=== PATIENT | female | born 1985 | race Caucasian/White ===

== ENCOUNTER 2019-12-21 07:38 | Inpatient (IN) ==
[2019-12-21] MEDS ORDERED: miSOPROStoL 50 MCG TAB PO ONE ×2 (08:17→10:30)
[2019-12-21] MEDS ORDERED: OXYTOCIN 30 UNITS/500 ML BAG IV PRN ×2 (08:17→19:23)
[2019-12-21] MEDS: LACTATED RINGER'S 1,000 ML IV PRN ×3 (08:33→21:22)
[2019-12-21 08:47] LABS: Hematocrit (blood only) 35.3 % (37-47); Hemoglobin 11.8 g/dL (12.0-16.0); Mean Corpuscular Hemoglobin 29.9 pg (25-34); Mean Corpuscular Volume 89.4 fL (80-100); Mean Platelet Volume 11.7 fL (7.4-10.4); Platelet Count 127 K/uL (130-400); RDW Coefficient of Variation 13.5 % (11.5-14.5); RDW Standard Deviation 43.6 fL (36.4-46.3); Red Blood Count 3.95 M/uL (4.2-5.4); White Blood Count 8.36 K/uL (4.8-10.8)
[2019-12-21] MEDS: CEFAZOLIN 1000MG 1,000 MG/7.5 ML SYR IV PRN ×2 (08:53→16:54)
[2019-12-21 09:11] LABS: Mean Corpuscular Hgb Conc 33.4 g/dL (32-36)
--- NOTE | 2019-12-21 09:11 | History and Physical Report ---
DATE OF ADMISSION: 12/21/2019 CHIEF COMPLAINT: Intrauterine at 35 weeks 1 day, sin rupture of membranes. HISTORY OF PRESENT ILLNESS: The patient is a 34-year-old 1, para 0. She is in good general health. She is on no chronic pills or medications. SHE STATES SHE IS ALLERGIC TO AMOXICILLIN FROM WHICH SHE HAS AN UNKNOWN REACTION. Her last menstrual period was 05/07/2019. Her first ultrasound at about 8 weeks' gave her a due date of 01/24/2020. She has had no problems. She did have a diagnosis of a 2-vessel umbilical cord. Her was progressing normally. She got up about 6:00 a.m. this morning and had a gush of fluid, which ran down her leg. She was told to come to maternity for evaluation and fluid was Nitrazine positive. ALLERGIES: ALLERGIC TO AMOXICILLIN, UNKNOWN REACTION. PAST SURGICAL HISTORY: No previous surgery. PAST MEDICAL HISTORY: No history of any medical problems. SOCIAL HISTORY: No smoking, no alcohol intake. Works at [employer]. FAMILY HISTORY: Mom is 62, diabetic; she has had 2 MIs. Father at age 35 in an auto accident. REVIEW OF SYSTEMS: HEAD: No symptoms of frequent or severe headaches. EYES: No symptoms of blurred vision or double vision. EARS: No symptoms of frequent ear infection or difficulty hearing. PHYSICAL EXAMINATION: GENERAL: A well-developed, well-nourished 34-year-old white female, alert, oriented x3 and cooperative, in no acute distress, appeared her stated age. EYES: Conjunctivae are pink. Sclerae white, no evidence of jaundice. EARS: Had normal light reflex bilaterally. LUNGS: Clear to auscultation and percussion. HEART: Had a regular rhythm. ABDOMEN: Revealed term size fetus. There was no tenderness, no CVA tenderness. PELVIC: Revealed sin rupture of membranes. Cervix was posterior, uneffaced, soft, vertex presentation, -3 station. Estimated weight 7 pounds. MUSCULOSKELETAL: Revealed no calf tenderness. IMPRESSIONS OF THIS CASE: Intrauterine at 35 weeks 1 day, sin rupture of membranes, 2-vessel umbilical cord.
[2019-12-21] MEDS ORDERED: miSOPROStoL 50 MCG TAB PO SCH (14:45)
[2019-12-21] MEDS ORDERED: BUTORPHANOL TARTRATE 1 MG/ML VIAL IV PRN (18:32)
[2019-12-21] MEDS ORDERED: ePHEDrine sulfate 50 MG/ML AMP ONE (19:31)
[2019-12-21] MEDS ORDERED: BUPIVACAINE 0.25% 30 ML VIAL ONE (19:31)
[2019-12-21] MEDS ORDERED: fentaNYL citrate 100 MCG/2 ML VIAL ONE (19:31)
[2019-12-21] MEDS ORDERED: fentaNYL 2MCG/ML ROPIV 1.25MG/ML 100 ML BAG EPI ONE (19:32)
--- NOTE | 2019-12-21 19:33 | Anesthesiology Consultation ---
Date of Service December 21, 2019 Assessment & Plan (1) Encounter for pre-operative examination: Chart Review Chart Review: Acceptable Risk for Labor Epidural History Height/Weight Height: 5 ft 7 in Weight: 90.265 kg Allergies Allergy/AdvReac Type Severity Reaction Status Date / Time amoxicillin Allergy Verified 05/13/19 12:37 Medications Home Medications Medication Instructions Recorded Confirmed Last Taken PNV cmb#95-ferrous fumarate-FA 1 tab PO DAILY 12/21/19 12/21/19 12/20/19 11:00 [] Active Medications Generic Name Dose Route Start Last Admin Trade Name Freq PRN Reason Stop Dose Admin Butorphanol Tartrate 1 mg 12/21/19 18:32 12/21/19 18:42 Stadol IV 01/20/20 18:31 1 mg ONCE PRN Administration Pain Lactated Ringer's 1,000 mls @ 125 mls/hr 12/21/19 08:17 12/21/19 18:45 Lr IV 12/23/19 08:16 999 mls/hr .Q8H PRN Infusion L&D Protocol Protocol Cefazolin Sodium 1,000 mg in 7.5 mls @ 2.5 mls/min 12/21/19 08:17 12/21/19 16:54 Ancef 1000mg IV 12/31/19 08:16 2.5 mls/min Q8H PRN Administration Until Delivery Misoprostol 50 mcg 12/21/19 14:45 12/21/19 15:00 Cytotec PO 01/20/20 14:44 50 mcg ONCE GIOVANNY Administration Past Medical History Medical History No significant active problems Past Family History Family History Grandmother (Maternal) Alzheimer disease Colonic polyp Coronary heart disease Dementia Diabetes Dyslipidemia Heart disease Hypertension Myocardial infarction Father Bipolar disorder Mother Asthma Colonic polyp Coronary heart disease Depression Diabetes Dyslipidemia Heart disease Hypertension Myocardial infarction Osteoarthritis Grandmother (Paternal) Breast cancer Aunt Dyslipidemia Uncle Sudden Denies family history of Rheumatoid arthritis SIDS (sudden infant syndrome) Ovarian cancer Prostate cancer Deep vein thrombosis Osteoporosis Cerebral aneurysm Clotting disorder Crohn's disease Kidney disease Schizophrenia Congenital kidney disease Gestational diabetes Lung cancer COPD (chronic obstructive pulmonary disease) Colorectal cancer Pulmonary embolism Lung disease Ulcerative colitis Stroke Cystic kidney disease Social History Smoking Status: Never smoker Do You Dip or Chew Tobacco: No Hx Alcohol Use: Yes Alcohol type: hard liquor Hx Substance Use: No Physical Exam Vital Signs Last Vital Signs Temp 36.4 C L 12/21/19 14:00 Pulse 86 12/21/19 19:21 Resp 18 12/21/19 14:00 BP 133/76 12/21/19 19:21 Testing Laboratory Results 12/21/19 08:35
[2019-12-21] MEDS ORDERED: NALOXONE HCL 0.4 MG/1 ML VIAL/CARP IV PRN (20:04)
[2019-12-21] MEDS ORDERED: NALOXONE HCL 1 MG in SODIUM CHLORIDE 0.9% 1000ML 1,000 ML IV PRN (20:04)
[2019-12-21] MEDS ORDERED: ONDANSETRON INJ 2 MG/ML 2 ML VIAL IV PRN (20:04)
[2019-12-21] MEDS ORDERED: fentaNYL 2MCG/ML ROPIV 1.25MG/ML 100 ML BAG EPI PRN (20:04)
[2019-12-21] MEDS ORDERED: ePHEDrine sulfate 50 MG/ML AMP IV PRN (20:04)
[2019-12-21] MEDS ORDERED: Nursing to Pharmacy Communication SCH (23:45)
[2019-12-22] MEDS: CEFAZOLIN 1000MG 1,000 MG/7.5 ML SYR IV PRN (01:19)
[2019-12-22] MEDS ORDERED: ACETAMINOPHEN 325 MG TAB PO PRN (02:05)
[2019-12-22] MEDS ORDERED: OXYTOCIN 30 UNITS/500 ML BAG IV PRN (02:05)
[2019-12-22] MEDS ORDERED: HYDROCORTISONE ACETATE 25 MG SUPP PR PRN (02:05)
[2019-12-22] MEDS ORDERED: OXYCODONE/ACETAMINOPHEN 5mg/325mg TAB PO PRN (02:05)
[2019-12-22] MEDS ORDERED: ACETAMINOPHEN W/CODEINE #3 1 TAB PO PRN (02:05)
[2019-12-22] MEDS ORDERED: IBUPROFEN 600 MG TAB PO PRN (02:05)
[2019-12-22] MEDS ORDERED: bisacodyL 10 MG SUPP PR PRN (02:05)
[2019-12-22] MEDS ORDERED: SUPERCREAM 0.870% 15 GM JAR EXT PRN (02:05)
[2019-12-22] MEDS ORDERED: BENZOCAINE 20% AER SPR 82.5 GM CAN EXT PRN (02:05)
[2019-12-22] MEDS ORDERED: DIPHTHERIA/TETANUS/PERTUSSIS 0.5 ML SYR/VIAL IM ONE (02:05)
--- NOTE | 2019-12-22 04:46 | Delivery Summary ---
DATE OF DELIVERY: 12/22/2019 DELIVERY NOTE She is a 1, para 1. Blood type is O positive, vaginal group B strep was not done. She was admitted at 35 weeks and 1 day gestation with sin rupture of the membranes. She was grossly Nitrazine fluid positive, the fluid was just gushing out. When she first was admitted, her cervix was like a cm dilated, was uneffaced, was fairly soft. We did a strep culture and then started her on synthetic penicillin due to an ALLERGY TO AMOXICILLIN. She eventually received 3 doses, a dose every 8 hours according to protocol. We started the induction with p.o. Cytotec 50 mcg, gave her 2 doses and then eventually we went to Pitocin. By the time we went to Pitocin, she was like 2-3 cm. Cervix was 100% effaced. Given 1 dose of Stadol and then she went to epidural. Got a fairly good pain release from the epidural, we continued the Pitocin, upped it gradually till we get contractions every 2-3 minutes. She pushed out a live female under half an hour via direct occiput anterior position over an intact perineum. was suctioned through the mouth and the nose. Shoulders were delivered without difficulty. Cord was allowed to pulsate for 1 full minute before clamping, then clamped the cord, cut the cord. Obtained cord blood, it was noted that there was only a 2-vessel cord, we up the Pitocin, the placenta was delivered pretty much on its own, which was removed intact. Inspection of the perineum revealed a first degree laceration at about 5 o'clock on the perineum. This was repaired with a running 2-0 Vicryl out to beyond the hymenal ring. Deep suture of 2-0 Vicryl was used to approximate the bulbocavernosus muscle, separate deep suture was used to approximate the perineal body, a running subcuticular suture of 2-0 Vicryl were used to approximate the perineal skin edges. Following this, vag exam including rectovaginal examination revealed no hematoma formation. There was a superficial laceration of the right labia minora with a small hematoma and this was repaired using a running 3-0 chromic, which compress the hematoma and created good hemostasis. Estimated blood loss was 300 mL. I think the Apgars were 8 and 10. The patient tolerated the procedure well. I attest to the content of the Intraoperative Record and any orders documented therein. Any exceptions are noted below. ANGELICAD
[2019-12-22] MEDS: DOCUSATE SODIUM 100 MG CAP PO SCH ×2 (08:51→20:17)
[2019-12-22] MEDS: PRENATAL VITAMIN 1 TAB PO SCH (08:51)
--- NOTE | 2019-12-22 09:07 | Anesthesia Procedure Note ---
Date of Service December 22, 2019 Anesthesia Post Epidural Note Vital Signs Vital Signs: Temp Pulse Resp BP Pulse Ox 36.7 C 83 18 111/66 94 12/22/19 02:06 12/22/19 04:06 12/22/19 04:06 12/22/19 04:06 12/22/19 04:06 Pain Intensity Abdomen: Pain Intensity: 0 Notes Mental Status: alert / awake / arousable and participated in evaluation Patient Amnestic to Procedure: No Nausea / Vomiting: adequately controlled Pain: adequately controlled Airway Patency, RR, SpO2: stable & adequate BP & HR: stable & adequate Hydration State: stable & adequate Neuraxial Anesthesia: was administered and sensory block is resolving Anesthetic Complications: no major complications apparent and Pt Satisfied with anesthetic care Epidural: Removed without complications and With tip intact
[2019-12-22] MEDS ORDERED: OXYTOCIN 20 UNITS in LACTATED RINGER'S 1,000 ML IV SCH (12:30)
--- NOTE | 2019-12-23 07:45 | Obstetrical Progress Note ---
Date of Service December 23, 2019 Assessment & Plan Admission and Anticipated Discharge Date Admission Date: December 21, 2019 Subjective Patient is seen and examined. She feels well, no complaints. Ambulating without dizziness Voiding without difficulty Tolerating regular diet with out N&V Bleeding is minimal No fever/ chills/ CP/ SOB/ N&V/ Leg pain feeding without problems Vital Signs Temp Pulse Pulse Resp BP Pulse Ox 12/22/19 23:20 36.8 C 76 18 117/68 98 12/22/19 20:15 36.5 C 79 18 125/74 12/22/19 16:25 36.6 C 74 18 120/72 12/22/19 12:45 36.7 C 90 21 115/72 98 12/22/19 08:23 36.7 C 84 19 106/63 96 Lab Results 12/21/19 Range/Units 08:35 WBC 8.36 (4.8-10.8) K/uL RBC 3.95 L (4.2-5.4) M/uL Hgb 11.8 L (12.0-16.0) g/dL Hct 35.3 L (37-47) % MCV 89.4 (80-100) fL MCH 29.9 (25-34) pg MCHC 33.4 (32-36) g/dL RDW Std Deviation 43.6 (36.4-46.3) fL RDW Coeff of Radha 13.5 (11.5-14.5) % Plt Count 127 L (130-400) K/uL MPV 11.7 H (7.4-10.4) fL PE: General: Alert, orientedx3, NAD Abd: soft, NT, fundus firm, below Umbilicus Perineum intact, Lochia rubra minimal Ext; NT, no edema AP: 34 yo s/p , ppd# 1 VSS Afebrile doing well Continue routine care All questions were answered D/C home tomorrow Results & Data ([facility]) Vital Signs (Past 12 Hours) Vital Signs Temp Pulse Pulse Resp BP Pulse Ox 12/22/19 23:20 36.8 C 76 18 117/68 98 12/22/19 20:15 36.5 C 79 18 125/74
[2019-12-23 07:46] LABS: Hematocrit (blood only) 34.4 % (37-47); Hemoglobin 11.3 g/dL (12.0-16.0); Mean Corpuscular Hemoglobin 29.9 pg (25-34); Mean Corpuscular Hgb Conc 32.8 g/dL (32-36); Mean Platelet Volume 12.3 fL (7.4-10.4); Platelet Count 119 K/uL (130-400); Platelet Estimate Normal (Normal); RDW Coefficient of Variation 13.8 % (11.5-14.5); RDW Standard Deviation 45.6 fL (36.4-46.3); Red Blood Count 3.78 M/uL (4.2-5.4); White Blood Count 9.39 K/uL (4.8-10.8)
[2019-12-23] MEDS: DOCUSATE SODIUM 100 MG CAP PO SCH ×2 (08:23→20:33)
[2019-12-23] MEDS: PRENATAL VITAMIN 1 TAB PO SCH (08:23)
[2019-12-23 09:13] LABS: Albumin Level 2.3 gm/dl (3.4-5.0); BUN Creatinine Ratio 12.7 (10-20); Creatinine Clr Calc Pharmacy 144.2 ml/min; Est GFR (African American) 135.9; Est GFR (Non-African American) 117.2
[2019-12-23 09:16] LABS: Albumin Globulin Ratio 0.6 (0.9-2); Bilirubin,Total 0.2 mg/dl (0.2-1); Globulin 3.9 gm/dl (2.5-4.0); Total Protein 6.2 gm/dl (6.4-8.2)
[2019-12-23] MEDS ORDERED: bisacodyL 5 MG TABEC PO SCH (20:00)
[2019-12-24 06:38] LABS: Hematocrit (blood only) 40.8 % (37-47); Hemoglobin 13.4 g/dL (12.0-16.0)
[2019-12-24] MEDS: PRENATAL VITAMIN 1 TAB PO SCH (07:58)
[2019-12-24] MEDS: DOCUSATE SODIUM 100 MG CAP PO SCH ×2 (07:58→18:26)
--- NOTE | 2019-12-24 08:45 | Obstetrical Progress Note ---
Date of Service December 24, 2019 Assessment & Plan Admission and Anticipated Discharge Date Admission Date: December 21, 2019 Physical Exam Physical Exam: abdomen soft and non tender vaginal bleeding scant 13.4 no calf tenderness ambulating well Results & Data ([facility]) Vital Signs (Past 12 Hours) Vital Signs Temp Pulse Resp BP Pulse Ox 12/24/19 08:00 36.6 C 81 16 116/83 97 12/23/19 23:45 36.6 C 70 18 101/64 97
== END 2019-12-24 18:30 | disposition home or self-care (01) | DRG 807 ==
LOC: OPB 07:38 → 4S1 07:43 → 4S2 12-22 04:31